=== PATIENT | female | born 1940 | race Caucasian/White ===

== ENCOUNTER → 2018-11-26 15:27 | Outpatient (CLI) | payer MEDICARE, OTHER, SELFPAY ==
--- NOTE | 2018-11-26 15:32 | CT_ITS ---
STUDY: CT MAXILLOFACIAL SINUSES REASON FOR EXAM: Female, 77 years old. He knows me for 3 months. RADIATION DOSAGE (If Supplied By Facility): CTDIvol = ( 33.06 ) mGy, DLP = ( 788.40 ) mGycm TECHNIQUE: The patient was scanned in a multi detector CT scanner. High resolution axial imaging was performed without the administration of intravenous contrast material. Sagittal and coronal images were reconstructed. Individualized dose optimization techniques were used for this CT. COMPARISON: None. FINDINGS: FRONTAL SINUSES: Normal aeration, without mucosal inflammatory disease. ETHMOIDAL SINUSES: Normal aeration, without mucosal inflammatory disease. MAXILLARY SINUSES: Normal aeration, without mucosal inflammatory disease. SPHENOIDAL SINUSES: Normal aeration, without mucosal inflammatory disease. There is patency of the bilateral maxillary infundibuli with normal uncinate processes, ethmoid bullae, and hiatus semilunaris. Normal bilateral middle turbinates. Normal bilateral inferior turbinates. Normal midline nasal septum. There is patency of the bilateral nasal airways. The visualized osseous structures are normal. The visualized bilateral orbital contents are normal. CT/Sinus/Facial Bone IMPRESSION: Normal CT examination of the maxillofacial sinuses. Electronically Signed: Rom Pedraza DO at 20:11 EDT Tel [phone], Service support ,
== END ==
PROVIDERS: Family Provider Nurse Practitioner Family; PCP Nurse Practitioner Family; Referring Provider Otolaryngology; Visit Provider Otolaryngology
DX: R43.0 Anosmia (principal)
CPT/HCPCS: 70486

== ENCOUNTER → 2021-06-01 | Outpatient (CLI) | payer MEDICARE, OTHER, SELFPAY ==
--- NOTE | 2021-06-01 | LES_PTH ---
PATIENT: FEDERICO [facility]OD[facility]IGUEZ [id number] AGE/SX: 80/F ROOM: RE06/01/[address]: Dr. Hebert Edwards MD : 1940 BED: DIS: 06/01/2021 SPEC #: [id number] RECD: 06/01/21 15:09 STATUS: BENNETT HARRISONPrecious #: [id number] GEORGI: 06/01/21 00:[address]: Hebert Edwards DEPT: SURGICAL PATHOLOGY RECD BY: Barrera Hameed ENTERED: 06/02/21 09:21 SP TYPE: Lesion OTHR DR: LISET Ibanez [facility] Tissues: Skin of face, NOS Procedures: Surgery Specimen Level IV HEADER OPERATION: Excision left lip lesion PRE-OP DIAGNOSIS: Left lip lesion TISSUE SUBMITTED: Left cheek fibroma MICROSCOPIC DIAGNOSIS Left lip/cheek lesion, excisional biopsy: A polypoid fragment of squamous mucosa with subepithelial fibrosis, consistent with irritation fibroma. RICHARD:dede 06/03/2021 MICROSCOPIC DESCRIPTION Slides are reviewed. GROSS DESCRIPTION Received is one container labeled with the patient's name and not further designated. The specimen consists of a round piece of varela-white skin measuring 0.5 x 0.5 x 0.2 cm. The specimen is inked, bisected and submitted entirely in one cassette. / RICHARD:dede 06/02/21 TC:5 CPT: 26283
== END | disposition home or self-care (01) ==
PROVIDERS: PCP Nurse Practitioner Family; Visit Provider Otolaryngology
DX: D10.0 Benign neoplasm of lip (principal)
CPT/HCPCS: 88305

== ENCOUNTER 2023-05-05 13:45 | Day surgery (SDC) | payer MEDICARE, OTHER, SELFPAY ==
[2023-05-05] VITALS (7 sets, daily range): BP systolic 89–134; BP diastolic 59–91; PULSE 61–78; RESP 16; TEMP 36.1–36.2; O2SAT 97–100; BMI 26.2
--- NOTE | 2023-05-05 | COLBX_PTH ---
PATIENT: FEDERICO RODRIGUEZ LOC: EN U#:[id number] AGE/SX: 82/F ROOM: RE05/05/[address]: Dr. Cade Donahue DO : 1940 BED: DIS: 05/05/2023 SPEC #: [id number] RECD: 05/05/23 18:24 STATUS: BENNETT RAMONITA #: [id number] GEORGI: 05/05/23 00:[address]: Cade Donahue DEPT: SURGICAL PATHOLOGY RECD BY: Barrera Hameed ENTERED: 05/08/23 09:34 SP TYPE: COLON BX OTHR DR: Narda Calvo, [employer] TECHNICAL OFFICER-C Tissues: A - Ascending colon B - Sigmoid colon biopsy C - Sigmoid colon biopsy Procedures: Surgery Specimen Level IV HEADER OPERATION: Colonoscopy and biopsy and polypectomy PRE-OP DIAGNOSIS: Acute diverticulitis TISSUE SUBMITTED: A - Ascending colon biopsy, B - sigmoid colon biopsy, C - Sigmoid colon polyp MICROSCOPIC DIAGNOSIS A. Ascending colon, biopsy: Microscopic colitis. B. Sigmoid colon, biopsy: Microscopic colitis. C. Sigmoid colon polyp, biopsy: Consistent with inflammatory polyp. AM:dede 05/09/2023 MICROSCOPIC DESCRIPTION Slides are reviewed. GROSS DESCRIPTION A - Received in fixative is one container labeled with the patient's name and designated ascending colon polyp. The specimen consists of two irregular fragments of light varela soft tissue that in aggregate measure 0.3 x 0.2 x 0.1 cm. The specimen is totally submitted in one cassette. B - Received in fixative is one container labeled with the patient's name and designated sigmoid colon biopsy. The specimen consists of two irregular fragments of light varela soft tissue that in aggregate measure 0.6 x 0.5 x 0.1 cm. The specimen is totally submitted in one cassette. C - Received in fixative is one container labeled with the patient's name and designated sigmoid polyp. The specimen consists of one irregular fragment of light varela soft tissue that measures 0.5 x 0.5 x 0.1 cm. The specimen is totally submitted in one cassette. / AM:dede 05/08/2023 TC:3 CPT: 75954 x3
--- NOTE | 2023-05-05 07:30 | HP_ITS ---
History and Physical Date of Admission: 05/05/23 82 F who presents to the office today for PCP OV 4 for wellcare and f/u for diverticulitis recommending establishing with GI for colonoscopy. ? CT abd/pel 10.31.22 [facility] liver and spleen with small calcified granulomas; pancreatic atrophy/fatty replacement; sigmoid thick-wall with likely diverticular inflammation, diverticulitis *BGI established 03.22.23 diverticulitis has occurred once which she was told was r/t lactulose intolerance; she started probiotic and is no longer having issues with milk. Previously milk ingestion caused loose stools and abdominal pain. Loose stools occur daily and is now twice a day rather than four with intermittent abdominal pain/cramping and sometimes some blood that she feels is r/t hemorrhoids. Last colonoscopy approximately 5 years prior without abnormality or polypectomy. ROS Const Constitutional: No anorexia, fatigue, fever(s), weight change or sleep problems Eyes Eyes: No change in vision ENT ENT: No abnormal hearing, difficulty swallowing, mouth lesions, tongue swelling or throat swelling Resp Respiratory: No cough or shortness of breath Cardio Cardiology: No chest pain at rest, chest pain with exertion, shortness of breath or dyspnea on exertion Gastro GI: No difficulty swallowing Genitourinary-Female: No difficulty urinating or burning urination Musc Musculoskeletal: No joint pain, joint swelling, muscle weakness or decreased muscle mass Skin Skin: No hair loss in leg, yellowing of the eye, itchy eyes, rash, skin ulcer or skin swelling Neuro Neurology: No abnormal hearing, abnormal movements, confusion, unsteady gait/balance or memory loss Psych Psychiatric: No anxiety, No confusion and No memory loss Endo Endocrine: No fatigue or weight change Aller/Imm Allergy/Immunologic: No itchy eyes, throat swelling or tongue swelling Kris/Lymp Hematologic/Lymphatic: No easy bleeding, easy bruising or enlarged lymph nodes Exam Const General: cooperative and comfortable Nutritional Appearance: average body habitus and well nourished [facility] Head: normal to inspection Ears: hearing grossly normal bilaterally Nose: external nose normal Face and sinus: normal facial exam Mouth: oral mucosae normal Throat: posterior oropharynx normal Eyes General: appearance normal, both eyes and all related structures Neck Neck: normal visual inspection Chest Chest palpation & inspection: normal inspection of the chest and normal palpation of entire chest wall Resp Effort & Inspection: normal respiratory effort Auscultation: Bilateral: Clear to Auscultation Cardio Palpation: normal PMI Rate: regular rate Rhythm: regular rhythm GI Inspection: normal to inspection Auscultation: normal bowel sounds Percussion: normal to percussion Palpation: no hepatosplenomegaly Skin General: no rashes or lesions noted Neuro General: patient alert Extrem General: normal to inspection Psych Affect: normal affect Assessment and Plan Assessment and Plan (1) Acute diverticulitis: Status: Acute Plan: Acute idiopathic diverticulitis. That was approximately 2 months ago. We will perform a surveillance colonoscopy. Recommend to continue probiotic therapy for prevention. She was explained alternatives, risk, benefits including not withstanding bleeding, infection, sepsis, perforation, need for more discharge and . She will have an ASA of 3. Coding Level of Care Code Off vis,new,level 4 Diagnoses Acute diverticulitis K57.92
--- NOTE | 2023-05-05 14:06 | HP.PCM_ITS ---
History and Physical Date of Admission: 05/05/23 82 F who presents to the office today for PCP OV 4 for wellcare and f/u for diverticulitis recommending establishing with GI for colonoscopy. ? CT abd/pel 10.31.22 [facility] liver and spleen with small calcified granulomas; pancreatic atrophy/fatty replacement; sigmoid thick-wall with likely diverticular inflammation, diverticulitis *BGI established 03.22.23 diverticulitis has occurred once which she was told was r/t lactulose intolerance; she started probiotic and is no longer having issues with milk. Previously milk ingestion caused loose stools and abdominal pain. Loose stools occur daily and is now twice a day rather than four with intermittent abdominal pain/cramping and sometimes some blood that she feels is r/t hemorrhoids. Last colonoscopy approximately 5 years prior without abnormality or polypectomy. ROS Const Constitutional: No anorexia, fatigue, fever(s), weight change or sleep problems Eyes Eyes: No change in vision ENT ENT: No abnormal hearing, difficulty swallowing, mouth lesions, tongue swelling or throat swelling Resp Respiratory: No cough or shortness of breath Cardio Cardiology: No chest pain at rest, chest pain with exertion, shortness of breath or dyspnea on exertion Gastro GI: No difficulty swallowing Genitourinary-Female: No difficulty urinating or burning urination Musc Musculoskeletal: No joint pain, joint swelling, muscle weakness or decreased muscle mass Skin Skin: No hair loss in leg, yellowing of the eye, itchy eyes, rash, skin ulcer or skin swelling Neuro Neurology: No abnormal hearing, abnormal movements, confusion, unsteady gait/balance or memory loss Psych Psychiatric: No anxiety, No confusion and No memory loss Endo Endocrine: No fatigue or weight change Aller/Imm Allergy/Immunologic: No itchy eyes, throat swelling or tongue swelling Kris/Lymp Hematologic/Lymphatic: No easy bleeding, easy bruising or enlarged lymph nodes Exam Const General: cooperative and comfortable Nutritional Appearance: average body habitus and well nourished [facility] Head: normal to inspection Ears: hearing grossly normal bilaterally Nose: external nose normal Face and sinus: normal facial exam Mouth: oral mucosae normal Throat: posterior oropharynx normal Eyes General: appearance normal, both eyes and all related structures Neck Neck: normal visual inspection Chest Chest palpation & inspection: normal inspection of the chest and normal palpation of entire chest wall Resp Effort & Inspection: normal respiratory effort Auscultation: Bilateral: Clear to Auscultation Cardio Palpation: normal PMI Rate: regular rate Rhythm: regular rhythm GI Inspection: normal to inspection Auscultation: normal bowel sounds Percussion: normal to percussion Palpation: no hepatosplenomegaly Skin General: no rashes or lesions noted Neuro General: patient alert Extrem General: normal to inspection Psych Affect: normal affect Assessment and Plan Assessment and Plan (1) Acute diverticulitis: Status: Acute Plan: Acute idiopathic diverticulitis. That was approximately 2 months ago. We will perform a surveillance colonoscopy. Recommend to continue probiotic therapy for prevention. She was explained alternatives, risk, benefits including not withstanding bleeding, infection, sepsis, perforation, need for more discharge and . She will have an ASA of 3. Coding Level of Care Code Off vis,new,level 4 Diagnoses Acute diverticulitis K57.92 03/22/23 1136 <Electronically signed by Cade Donahue DO> Date Cade Donahue DO Cosigner Signature: Date I have examined the patient and the H&P has been reviewed. There are no clinical changes since date of exam.
[2023-05-05] MEDS: Lactated Ringers 1,000 ML 15 ML IV (14:15)
--- NOTE | 2023-05-05 14:59 | OP.CCLET_ITS ---
05/05/2023 Narda Calvo Re : Colonoscopy procedure for Mary Williamson Dear [place] This procedure was performed on Friday, May 05, 2023. My impressions and recommendations are as follows: Impressions : - Diverticulosis in the recto-sigmoid colon and in the sigmoid colon. Biopsied. - One 7 mm polyp in the sigmoid colon, removed with a cold snare. Resected and retrieved. - Patchy mild inflammation was found in the ascending colon secondary to colitis. Biopsied. Recommendations : - Discharge patient to home. - Resume previous diet. - Continue present medications. - Await pathology results. - No repeat colonoscopy due to age. My findings are described in the full procedure note, which is enclosed. If I can be of further assistance, please feel free to contact me at . Sincerely, Cade Donahue, 05/05/2023 2:58:48 PM This report has been signed electronically.
--- NOTE | 2023-05-05 14:59 | OP.COLON_ITS ---
Patient Name: Mary Williamson Procedure Date: 05/05/2023 2:16 PM Date of : 1940 Age: 82 Procedure: Colonoscopy Indications: Abnormal CT of the GI tract Providers: Cade Donahue DO Medicines: Monitored Anesthesia Care Patient Profile: This is an 82 year old female. Refer to note in patient chart for documentation of history and physical. Last Colonoscopy: date unknown. Unable to locate last colonoscopy report. Previously obtained CT showed a stricture in the sigmoid colon. Complications: No immediate complications. Procedure: Pre-Anesthesia Assessment: - Prior to the procedure, a History and Physical was performed, and patient medications and allergies were reviewed. The patient is competent. The risks and benefits of the procedure and the sedation options and risks were discussed with the patient. All questions were answered and informed consent was obtained. Patient identification and proposed procedure were verified by the physician in the pre-procedure area. Mental Status Examination: alert and oriented. Airway Examination: normal oropharyngeal airway and neck mobility. Respiratory Examination: clear to auscultation. CV Examination: normal. Prophylactic Antibiotics: The patient does not require prophylactic antibiotics. Prior Anticoagulants: The patient has taken no anticoagulant or antiplatelet agents. ASA Grade Assessment: II - A patient with mild systemic disease. After reviewing the risks and benefits, the patient was deemed in satisfactory condition to undergo the procedure. The anesthesia plan was to use monitored anesthesia care (MAC). Immediately prior to administration of medications, the patient was re-assessed for adequacy to receive sedatives. The heart rate, respiratory rate, oxygen saturations, blood pressure, adequacy of pulmonary ventilation, and response to care were monitored throughout the procedure. The physical status of the patient was re-assessed after the procedure. After I obtained informed consent, the scope was passed under direct vision. Throughout the procedure, the patient's blood pressure, pulse, and oxygen saturations were monitored continuously. The Colonoscope was introduced through the anus and advanced to the cecum, identified by appendiceal orifice and ileocecal valve. The colonoscopy was performed without difficulty. The patient tolerated the procedure well. The quality of the bowel preparation was adequate. Scope In: 2:30:22 PM Scope Withdrawal Time 0 hours 10 minutes 14 seconds Scope Out: 2:48:55 PM Total Procedure Duration Time 0 hours 18 minutes 33 seconds Findings: The perianal and digital rectal examinations were normal. Multiple small and large-mouthed diverticula were found in the recto-sigmoid colon and sigmoid colon. Biopsies were taken with a cold forceps for histology. Verification of patient identification for the specimen was done. Estimated blood loss was minimal. A 7 mm polyp was found in the sigmoid colon. The polyp was sessile. The polyp was removed with a cold snare. Resection and retrieval were complete. Verification of patient identification for the specimen was done. Estimated blood loss was minimal. Patchy mild inflammation characterized by erosions and erythema was found in the ascending colon. Biopsies were taken with a cold forceps for histology. Impression: - Diverticulosis in the recto-sigmoid colon and in the sigmoid colon. Biopsied. - One 7 mm polyp in the sigmoid colon, removed with a cold snare. Resected and retrieved. - Patchy mild inflammation was found in the ascending colon secondary to colitis. Biopsied. Recommendation: - Discharge patient to home. - Resume previous diet. - Continue present medications. - Await pathology results. - No repeat colonoscopy due to age. Procedure Code(s): --- Professional --- 77878, Colonoscopy, flexible; with removal of tumor(s), polyp(s), or other lesion(s) by snare technique 84790, 59, Colonoscopy, flexible; with biopsy, single or multiple CPT copyright 2021 [employer]. All rights reserved. The codes documented in this report are preliminary and upon remote inpatient coder review may be revised to meet current compliance requirements. Cade Donahue DO 05/05/2023 2:58:48 PM This report has been signed electronically. Number of Addenda: 0 Note Initiated On: 05/05/2023 2:16 PM
== END 2023-05-05 16:02 | disposition home or self-care (01) ==
LOC: EN 13:47 → AC 13:50
PROVIDERS: PCP Nurse Practitioner Family; Referring Provider Nurse Practitioner Family; Visit Provider Internal Medicine Gastroenterology
PROC: 0DJD8ZZ Inspection of Lower Intestinal Tract, Via Natural or Artificial Opening Endoscopic (ICD-10-PCS; CPT 45378; principal; 2023-05-05 14:40)
DX: K52.839 Microscopic colitis, unspecified (principal); K57.32 Diverticulitis of large intestine without perforation or abscess without bleeding; K63.5 Polyp of colon; I10 Essential (primary) hypertension; E78.00 Pure hypercholesterolemia, unspecified; Z79.899 Other long term (current) drug therapy; Z87.891 Personal history of nicotine dependence
CPT/HCPCS: 45385; 45380; 88305; J7120; J2405